=== PATIENT | male | born 1970 | race Caucasian/White ===

== ENCOUNTER 2023-12-05 15:29 | Inpatient (IN) | payer MEDICARE, OTHER ==
[~2023-12-05] VITALS: Ht 185.4 cm; Wt 72.6 kg
[2023-12-05] MEDS ORDERED: CHLORDIAZEPOXIDE HCL 25 MG CAPSULE ONE (16:13)
[2023-12-05] MEDS: CHLORDIAZEPOXIDE HCL 25 MG CAPSULE PO ONE (16:21)
[2023-12-05] MEDS ORDERED: ATOR40TA PO (16:32)
[2023-12-05] MEDS ORDERED: APIX5TAB PO (16:32)
[2023-12-05] MEDS ORDERED: ACET-868 PO (16:32)
[2023-12-05 16:43] LABS: BASOPHILS # (AUTO) 0.1 K/uL (0.0-0.2); BASOPHILS % (AUTO) 0.4 % (0.0-2.0); EOSINOPHILS # (AUTO) 0.1 K/uL (0.0-0.7); EOSINOPHILS % (AUTO) 0.7 % (0.0-6.0); HEMATOCRIT 43 % (39-51); HEMOGLOBIN 14.3 g/dL (13.5-17.5); LYMPHOCYTES # (AUTO) 1.7 K/uL (0.8-4.8); LYMPHOCYTES % (AUTO) 12.1 % (20.0-44.0); MEAN CORPUSCULAR HEMOGLOBIN 33 PG (26.0-33.0); MEAN CORPUSCULAR HGB CONC 34 g/dl (31.0-36.0); MEAN CORPUSCULAR VOLUME 97 fL (80-96); MONOCYTES # (AUTO) 0.9 K/uL (0.1-1.30); MONOCYTES % (AUTO) 6.3 % (2.0-12.0); NEUTROPHILS % (AUTO) 80.5 % (43.0-81.0); PLATELET COUNT (AUTO) 240 K/uL (150-450); RED BLOOD CELL COUNT(AUTO) 4.38 MIL/uL (4.5-6.0); RED CELL DISTRIBUTION WIDTH 14.7 % (11.5-15.0); WHITE BLOOD COUNT (AUTO) 13.6 K/uL (4.3-11.0)
[2023-12-05 16:58] LABS: ALBUMIN 3.8 g/dL (3.4-5.0); BILIRUBIN,DIRECT 0.2 mg/dL (0.0-0.2); BILIRUBIN,TOTAL 0.8 mg/dL (0.2-1.0); CALCIUM, SERUM 9.8 mg/dL (8.5-10.1); CREATININE 0.9 mg/dL (0.6-1.3); POTASSIUM 3.8 mmol/L (3.5-5.1); SALICYLATE 5.6 mg/dL (2.8-20.0); TOTAL PROTEIN, SERUM 7.7 g/dL (6.4-8.2)
[2023-12-05 17:01] LABS: APPEARANCE,URINE CLEAR (CLEAR); BILIRUBIN,URINE NEGATIVE (NEGATIVE); BLOOD, URINE TRACE-INTA Ery/uL (NEGATIVE); COLOR,URINE YELLOW (YELLOW); KETONES,URINE TRACE mg/dL (NEGATIVE); LEUKOCYTE ESTERASE ,URINE NEGATIVE (NEGATIVE); NITRITE, URINE NEGATIVE (NEGATIVE); PH,URINE 6.5 (5.0-8.0); PROTEIN,URINE NEGATIVE (NEGATIVE); UGLUCOSE NEGATIVE (NEGATIVE); UROBILINOGEN,URINE 0.2 EU/dL (0.2)
[2023-12-05 17:15] LABS: AMPHETAMINE, URINE NEGATIVE (NEGATIVE); BARBITURATE, URINE NEGATIVE (NEGATIVE); BENZODIAZEPINE, URINE NEGATIVE (NEGATIVE); CANNABINOID, URINE POSITIVE (NEGATIVE); COCCAINE, URINE NEGATIVE (NEGATIVE); OPIATE, URINE NEGATIVE (NEGATIVE); PHENCYCLIDINE SCREEN,URINE NEGATIVE (NEGATIVE)
[2023-12-05] MEDS ORDERED: MAGNESIUM HYDROXIDE 30 ML UDC PO PRN (18:30)
[2023-12-05] MEDS ORDERED: MAG HYDROX/AL HYDROX/SIMETH 30 ML UDC PO PRN (18:30)
[2023-12-05] MEDS ORDERED: Z GUARD REMEDY 4 OZ OINT TP PRN (18:30)
[2023-12-05] MEDS ORDERED: LORAZEPAM INJ 2 MG/ML VIAL IV PRN (18:30)
[2023-12-05] MEDS ORDERED: ONDANSETRON HCL/PF 4 MG/2 ML VIAL IVP PRN (18:30)
[2023-12-05] MEDS ORDERED: ZOLPIDEM TARTRATE 5 MG TABLET PO PRN (18:30)
[2023-12-05] MEDS ORDERED: LORAZEPAM 0.5 MG TABLET PO PRN (18:30)
[2023-12-05] MEDS ORDERED: DEXTROSE 50%-WATER 50 ML DISP.SYRIN IV PRN (18:30)
[2023-12-05] MEDS ORDERED: ACETAMINOPHEN 325 MG TABLET PO PRN (18:30)
[2023-12-05] MEDS: Thiamine 100 MG in IV D5W 50 ML IV SCH (19:08)
[2023-12-05 20:00] VITALS: BP_SYST 102; BP_SYST 122; BP_DIAS 66; BP_DIAS 86; TEMP 98.4; TEMP 98.5; O2SAT 97; O2SAT 98
[2023-12-05] MEDS: BLOOD SUGAR DIAGNOSTIC 1 EACH STRIP VI SCH (21:37)
[2023-12-06] VITALS: BP 128/73; TEMP 98; O2SAT 96
[2023-12-06 04:00] VITALS: BP 124/81; TEMP 98.3; O2SAT 96
[2023-12-06 06:51] LABS: BASOPHILS % (AUTO) 0.5 % (0.0-2.0); EOSINOPHILS # (AUTO) 0.2 K/uL (0.0-0.7); EOSINOPHILS % (AUTO) 3.1 % (0.0-6.0); HEMATOCRIT 42 % (39-51); HEMOGLOBIN 14.1 g/dL (13.5-17.5); LYMPHOCYTES # (AUTO) 1.7 K/uL (0.8-4.8); LYMPHOCYTES % (AUTO) 23.5 % (20.0-44.0); MEAN CORPUSCULAR HEMOGLOBIN 33 PG (26.0-33.0); MEAN CORPUSCULAR HGB CONC 34 g/dl (31.0-36.0); MEAN CORPUSCULAR VOLUME 98 fL (80-96); MONOCYTES # (AUTO) 0.6 K/uL (0.1-1.30); MONOCYTES % (AUTO) 8.1 % (2.0-12.0); NEUTROPHILS # (AUTO) 4.6 K/uL (1.8-8.9); NEUTROPHILS % (AUTO) 64.8 % (43.0-81.0); PLATELET COUNT (AUTO) 207 K/uL (150-450); RED BLOOD CELL COUNT(AUTO) 4.24 MIL/uL (4.5-6.0); RED CELL DISTRIBUTION WIDTH 14.7 % (11.5-15.0); WHITE BLOOD COUNT (AUTO) 7.1 K/uL (4.3-11.0)
[2023-12-06 07:29] LABS: CALCIUM, SERUM 8.9 mg/dL (8.5-10.1); CREATININE 0.7 mg/dL (0.6-1.3); MAGNESIUM 2.1 mg/dL (1.8-2.4); PHOSPHORUS 4.2 mg/dL (2.5-4.9); POTASSIUM 3.7 mmol/L (3.5-5.1)
[2023-12-06] MEDS: PANTOPRAZOLE 40 MG TABLET.DR PO SCH (07:30)
[2023-12-06 08:00] VITALS: BP 109/74; TEMP 97.3; O2SAT 98
[2023-12-06] MEDS ORDERED: HYDROCODONE/APAP 5/325MG TABLET PO PRN (08:30)
[2023-12-06] MEDS: CHLORDIAZEPOXIDE HCL 25 MG CAPSULE PO SCH (08:53)
[2023-12-06] MEDS: FOLIC ACID 1 MG TABLET PO SCH (08:53)
[2023-12-06] MEDS: INSULIN REGULAR, HUMAN 100 UNIT/ML 3 ML VIAL SQ PRN (08:57)
[2023-12-06] MEDS: THIAMINE HCL 100 MG TABLET PO SCH (09:55)
[2023-12-06 12:00] VITALS: BP 110/80; TEMP 98.4; O2SAT 99
[2023-12-06] MEDS: IBUPROFEN 400 MG TABLET PO PRN (12:58)
[2023-12-06 16:05] VITALS: BP 107/80; TEMP 97.5; O2SAT 95
[2023-12-06 20:00] VITALS: BP 102/66; TEMP 98.5; O2SAT 98
[2023-12-06] MEDS: CHLORDIAZEPOXIDE HCL 25 MG CAPSULE PO ONE (20:56)
[2023-12-06] MEDS: *INSULIN REGULAR(HUMULIN R)HUM 100 UNIT/ML VIAL SQ PRN (22:29)
[2023-12-07] VITALS: BP 98/63; TEMP 98.7; O2SAT 97
[2023-12-07] MEDS ORDERED: LOPERAMIDE HCL (2 MG CAP) 2 MG CAPSULE ONE (02:02)
[2023-12-07] MEDS: LOPERAMIDE HCL (2 MG CAP) 2 MG CAPSULE PO ONE (02:05)
[2023-12-07 04:00] VITALS: BP 100/72; TEMP 97.5; O2SAT 96
[2023-12-07 06:36] LABS: BASOPHILS # (AUTO) 0.1 K/uL (0.0-0.2); BASOPHILS % (AUTO) 0.9 % (0.0-2.0); EOSINOPHILS # (AUTO) 0.2 K/uL (0.0-0.7); EOSINOPHILS % (AUTO) 3.7 % (0.0-6.0); HEMATOCRIT 40 % (39-51); HEMOGLOBIN 13.3 g/dL (13.5-17.5); MEAN CORPUSCULAR HEMOGLOBIN 33 PG (26.0-33.0); MEAN CORPUSCULAR HGB CONC 33 g/dl (31.0-36.0); MEAN CORPUSCULAR VOLUME 98 fL (80-96); MONOCYTES # (AUTO) 0.6 K/uL (0.1-1.30); MONOCYTES % (AUTO) 8.9 % (2.0-12.0); NEUTROPHILS # (AUTO) 3.7 K/uL (1.8-8.9); NEUTROPHILS % (AUTO) 56.5 % (43.0-81.0); PLATELET COUNT (AUTO) 188 K/uL (150-450); RED BLOOD CELL COUNT(AUTO) 4.07 MIL/uL (4.5-6.0); RED CELL DISTRIBUTION WIDTH 14.3 % (11.5-15.0); WHITE BLOOD COUNT (AUTO) 6.5 K/uL (4.3-11.0)
[2023-12-07 07:07] LABS: CALCIUM, SERUM 8.7 mg/dL (8.5-10.1); CREATININE 0.8 mg/dL (0.6-1.3); MAGNESIUM 1.9 mg/dL (1.8-2.4); PHOSPHORUS 4.1 mg/dL (2.5-4.9); POTASSIUM 3.6 mmol/L (3.5-5.1)
[2023-12-07 08:00] VITALS: BP 97/70; TEMP 97.7; O2SAT 96
== END 2023-12-07 10:30 | disposition short-term general hospital (02) | DRG 897 ==
LOC: ER 15:34 → TELE1 17:41
PROVIDERS: ADMIT Student in an Organized Health Care Education/Training Program; ATTEND Student in an Organized Health Care Education/Training Program
DX: F10.139 Alcohol abuse with withdrawal, unspecified (principal); G83.4 Cauda equina syndrome; Z59.00 Homelessness unspecified; E11.40 Type 2 diabetes mellitus with diabetic neuropathy, unspecified; Y90.1 Blood alcohol level of 20-39 mg/100 ml; M48.061 Spinal stenosis, lumbar region without neurogenic claudication; M48.02 Spinal stenosis, cervical region; M51.26 Other intervertebral disc displacement, lumbar region; M50.20 Other cervical disc displacement, unspecified cervical region; I10 Essential (primary) hypertension; G89.29 Other chronic pain; Z88.8 Allergy status to other drugs, medicaments and biological substances; Z79.01 Long term (current) use of anticoagulants; Z79.899 Other long term (current) drug therapy; Z86.718 Personal history of other venous thrombosis and embolism; G62.9 Polyneuropathy, unspecified
CPT/HCPCS: 36415; 72125-TC; 72131-TC; 80048-TC; 80076-TC; 82962-TC; 83735-TC; 84100-TC; 85025-TC; 87081-TC; A4223; G0378; G0480; J1815; J3411; J7050; J7060

== ENCOUNTER 2023-12-09 15:37 | Inpatient (IN) | payer MEDICARE, OTHER ==
[~2023-12-09] VITALS: Ht 188 cm; Wt 72.6 kg
[~2023-12-09 15:37] MED LIST: ACET-868 PO; APIX5TAB PO; ATOR40TA PO
[2023-12-09] MEDS ORDERED: *INS REG3 SQ (16:33)
[2023-12-09] MEDS ORDERED: IBUP-1955 PO (16:33)
[2023-12-09] MEDS ORDERED: FOLI0.4T6 PO (16:33)
[2023-12-09] MEDS ORDERED: HYDR-4303 PO (16:33)
[2023-12-09] MEDS ORDERED: THIA100T74 PO (16:33)
[2023-12-09] MEDS ORDERED: CHLO25CA10 PO (16:33)
[2023-12-09] MEDS ORDERED: MAGN400O6 PO (16:33)
[2023-12-09] MEDS ORDERED: ONDA-97 PO (16:33)
[2023-12-09] MEDS ORDERED: PANT40TA2 PO (16:33)
[2023-12-09] MEDS ORDERED: MAG30ORA PO (16:33)
[2023-12-09] MEDS ORDERED: ZOLP5TAB8 PO (16:33)
[2023-12-09 17:00] VITALS: BP 103/70; TEMP 97.7; O2SAT 93
[2023-12-09 20:00] VITALS: BP 105/78; TEMP 97.5; O2SAT 97
[2023-12-09] MEDS ORDERED: ZOLPIDEM TARTRATE 5 MG TABLET PO PRN (21:30)
[2023-12-09] MEDS ORDERED: IBUPROFEN 400 MG TABLET PO PRN (21:30)
[2023-12-09] MEDS ORDERED: MAG HYDROX/AL HYDROX/SIMETH 30 ML UDC PO PRN (21:30)
[2023-12-09] MEDS ORDERED: ONDANSETRON 4 MG TAB.RAPDIS SL PRN (21:30)
[2023-12-09] MEDS ORDERED: Z GUARD REMEDY 4 OZ OINT TP PRN (21:30)
[2023-12-09] MEDS ORDERED: ACETAMINOPHEN 325 MG TABLET PO PRN (21:30)
[2023-12-09] MEDS ORDERED: HYDROCODONE/APAP 5/325MG TABLET PO PRN (21:30)
[2023-12-09] MEDS ORDERED: MAGNESIUM HYDROXIDE 30 ML UDC PO PRN (21:30)
[2023-12-09] MEDS ORDERED: CHLORDIAZEPOXIDE HCL 25 MG CAPSULE PO PRN (21:30)
[2023-12-09] MEDS ORDERED: CYCLOBENZAPRINE 10 MG TABLET PO PRN (23:30)
[2023-12-10 04:00] VITALS: BP 103/67; TEMP 98.1; O2SAT 98
[2023-12-10] MEDS: PANTOPRAZOLE 40 MG TABLET.DR PO SCH (06:37)
[2023-12-10 08:00] VITALS: BP 120/87; TEMP 97.7; O2SAT 99
[2023-12-10] MEDS: FOLIC ACID 1 MG TABLET PO SCH (08:28)
[2023-12-10] MEDS: THIAMINE HCL 100 MG TABLET PO SCH (08:28)
[2023-12-10 16:00] VITALS: BP 114/77; TEMP 97.5; O2SAT 100
[2023-12-10 18:00] VITALS: BP 114/77; TEMP 97.5; O2SAT 100
[2023-12-11] VITALS: BP 112/89; TEMP 98.4; O2SAT 100
[2023-12-11 07:06] LABS: BASOPHILS % (AUTO) 0.8 % (0.0-2.0); EOSINOPHILS # (AUTO) 0.2 K/uL (0.0-0.7); EOSINOPHILS % (AUTO) 4.2 % (0.0-6.0); HEMATOCRIT 42 % (39-51); HEMOGLOBIN 13.9 g/dL (13.5-17.5); LYMPHOCYTES # (AUTO) 1.8 K/uL (0.8-4.8); LYMPHOCYTES % (AUTO) 32.1 % (20.0-44.0); MEAN CORPUSCULAR HEMOGLOBIN 33 PG (26.0-33.0); MEAN CORPUSCULAR HGB CONC 33 g/dl (31.0-36.0); MEAN CORPUSCULAR VOLUME 99 fL (80-96); MONOCYTES # (AUTO) 0.6 K/uL (0.1-1.30); MONOCYTES % (AUTO) 10.3 % (2.0-12.0); NEUTROPHILS % (AUTO) 52.6 % (43.0-81.0); PLATELET COUNT (AUTO) 204 K/uL (150-450); RED BLOOD CELL COUNT(AUTO) 4.25 MIL/uL (4.5-6.0); RED CELL DISTRIBUTION WIDTH 14.1 % (11.5-15.0); WHITE BLOOD COUNT (AUTO) 5.6 K/uL (4.3-11.0)
[2023-12-11 07:34] LABS: CALCIUM, SERUM 9.7 mg/dL (8.5-10.1); CREATININE 1.1 mg/dL (0.6-1.3)
[2023-12-11 08:00] VITALS: BP 107/74; TEMP 97.7; O2SAT 98
[2023-12-11 16:00] VITALS: BP 127/80; TEMP 97.1; O2SAT 96
[2023-12-12] MEDS ORDERED: CRAN425C6 PO (14:19)
[2023-12-12] MEDS ORDERED: BISA10SU11 RC (14:19)
[2023-12-12] MEDS ORDERED: DOCU100C36 PO (14:19)
== END 2023-12-11 19:31 | DRG 552 ==
LOC: TELE1 16:17 → MEDSG1 12-10 05:00
DX: M48.061 Spinal stenosis, lumbar region without neurogenic claudication (principal); G83.4 Cauda equina syndrome; M48.02 Spinal stenosis, cervical region; M54.30 Sciatica, unspecified side; E11.40 Type 2 diabetes mellitus with diabetic neuropathy, unspecified; I10 Essential (primary) hypertension; Z98.1 Arthrodesis status; Z86.718 Personal history of other venous thrombosis and embolism; Z71.6 Tobacco abuse counseling; M25.78 Osteophyte, vertebrae; F10.10 Alcohol abuse, uncomplicated; Y90.9 Presence of alcohol in blood, level not specified; F17.210 Nicotine dependence, cigarettes, uncomplicated; Z79.4 Long term (current) use of insulin; Z79.899 Other long term (current) drug therapy
CPT/HCPCS: 36415; 80048-TC; 85025-TC; 97112-TC; 97116-TC; 97530-TC; G0378

== ENCOUNTER 2023-12-12 11:03 | Inpatient (IN) | payer MEDICARE, OTHER ==
[~2023-12-12] VITALS: Ht 188 cm; Wt 74.8 kg
[~2023-12-12 11:03] MED LIST changes: +*INS REG3 SQ; -APIX5TAB PO; -ATOR40TA PO; +FOLI0.4T6 PO; +IBUP-1955 PO; +MAG30ORA PO; +MAGN400O6 PO; +ONDA-97 PO; +PANT40TA2 PO; +THIA100T74 PO
[2023-12-12 11:40] VITALS: O2SAT 93
[2023-12-12 12:03] LABS: BASOPHILS % (AUTO) 0.5 % (0.0-2.0); EOSINOPHILS # (AUTO) 0.1 K/uL (0.0-0.7); EOSINOPHILS % (AUTO) 2.4 % (0.0-6.0); HEMATOCRIT 43 % (39-51); LYMPHOCYTES # (AUTO) 2.1 K/uL (0.8-4.8); LYMPHOCYTES % (AUTO) 35.2 % (20.0-44.0); MEAN CORPUSCULAR HEMOGLOBIN 32 PG (26.0-33.0); MEAN CORPUSCULAR HGB CONC 33 g/dl (31.0-36.0); MEAN CORPUSCULAR VOLUME 97 fL (80-96); MONOCYTES # (AUTO) 0.6 K/uL (0.1-1.30); MONOCYTES % (AUTO) 9.6 % (2.0-12.0); NEUTROPHILS # (AUTO) 3.2 K/uL (1.8-8.9); NEUTROPHILS % (AUTO) 52.3 % (43.0-81.0); PLATELET COUNT (AUTO) 228 K/uL (150-450); RED CELL DISTRIBUTION WIDTH 14.5 % (11.5-15.0); WHITE BLOOD COUNT (AUTO) 6.1 K/uL (4.3-11.0)
[2023-12-12 12:11] LABS: SERUM AMMONIA 18 umol/L (11-32)
[2023-12-12 12:20] LABS: ALANINE AMINOTRANSFERASE 48 U/L (12-78); ALBUMIN 4.1 g/dL (3.4-5.0); ALCOHOL, BLOOD 207 mg/dL (0-10); ALKALINE PHOSPHATASE 76 U/L (46-116); ASPARTATE AMINOTRANSFERASE 25 U/L (15-37); BILIRUBIN,TOTAL 0.2 mg/dL (0.2-1.0); CALCIUM, SERUM 9.4 mg/dL (8.5-10.1); CARBON DIOXIDE 29 mmol/L (21-32); CHLORIDE 106 mmol/L (98-107); CREATININE 1.1 mg/dL (0.6-1.3); GLUCOSE 101 mg/dL (74-106); POTASSIUM 3.8 mmol/L (3.5-5.1); SODIUM SERUM 143 mmol/L (136-145); TOTAL PROTEIN, SERUM 7.7 g/dL (6.4-8.2); UREA NITROGEN, BLOOD 15 mg/dL (7-18)
[2023-12-12 12:34] LABS: BILIRUBIN,DIRECT 0.1 mg/dL (0.0-0.2)
[2023-12-12] MEDS ORDERED: BISA10SU11 RC (14:19)
[2023-12-12] MEDS ORDERED: CRAN425C6 PO (14:19)
[2023-12-12] MEDS ORDERED: DOCU100C36 PO (14:19)
[2023-12-12 14:44] LABS: SALICYLATE 5.9 mg/dL (2.8-20.0)
[2023-12-12] MEDS ORDERED: MAG HYDROX/AL HYDROX/SIMETH 30 ML UDC PO PRN ×2 (16:00→18:30)
[2023-12-12] MEDS ORDERED: BISACODYL SUPP (10 MG) 10 MG/SUPP.RECT SUPP.RECT RC PRN (16:00)
[2023-12-12] MEDS ORDERED: MAGNESIUM HYDROXIDE 30 ML UDC PO PRN ×2 (16:00→18:30)
[2023-12-12] MEDS ORDERED: ACETAMINOPHEN 325 MG TABLET PO PRN ×2 (16:00→18:30)
[2023-12-12] MEDS ORDERED: ONDANSETRON 4 MG TAB.RAPDIS PO PRN (16:30)
[2023-12-12] MEDS: *INSULIN REGULAR(HUMULIN R)HUM 100 UNIT/ML VIAL SQ SCH (17:30)
[2023-12-12 18:08] LABS: APPEARANCE,URINE CLEAR (CLEAR); BILIRUBIN,URINE NEGATIVE (NEGATIVE); BLOOD, URINE NEGATIVE Ery/uL (NEGATIVE); COLOR,URINE YELLOW (YELLOW); KETONES,URINE NEGATIVE (NEGATIVE); LEUKOCYTE ESTERASE ,URINE NEGATIVE (NEGATIVE); NITRITE, URINE NEGATIVE (NEGATIVE); PROTEIN,URINE NEGATIVE (NEGATIVE); UGLUCOSE NEGATIVE (NEGATIVE); UROBILINOGEN,URINE 0.2 EU/dL (0.2)
[2023-12-12] MEDS: CHLORDIAZEPOXIDE HCL 25 MG CAPSULE PO PRN (18:08)
[2023-12-12 18:15] LABS: AMPHETAMINE, URINE NEGATIVE (NEGATIVE); BARBITURATE, URINE NEGATIVE (NEGATIVE); CANNABINOID, URINE NEGATIVE (NEGATIVE); COCCAINE, URINE NEGATIVE (NEGATIVE); OPIATE, URINE NEGATIVE (NEGATIVE); PHENCYCLIDINE SCREEN,URINE NEGATIVE (NEGATIVE)
[2023-12-12 18:16] LABS: BENZODIAZEPINE, URINE POSITIVE (NEGATIVE)
[2023-12-12] MEDS ORDERED: TEMAZEPAM 7.5 MG CAPSULE PO PRN (18:30)
[2023-12-12] MEDS: BLOOD SUGAR DIAGNOSTIC 1 EACH STRIP IN ONE (19:25)
[2023-12-12 20:00] VITALS: BP 101/57; TEMP 98.1; O2SAT 96
[2023-12-13] MEDS: PANTOPRAZOLE 40 MG TABLET.DR PO SCH (07:30)
[2023-12-13 08:00] VITALS: BP 137/90; TEMP 97.6; O2SAT 99
[2023-12-13] MEDS: DOCUSATE SODIUM 100 MG CAPSULE PO SCH (09:00)
[2023-12-13] MEDS: THIAMINE HCL 100 MG TABLET PO SCH (09:32)
[2023-12-13] MEDS: FOLIC ACID 1 MG TABLET PO SCH (09:32)
[2023-12-13] MEDS: risperiDONE 1 MG TABLET PO SCH (12:47)
[2023-12-13 16:00] VITALS: BP 110/71; TEMP 97.9; O2SAT 97
[2023-12-13] MEDS ORDERED: INSULIN REGULAR, HUMAN 100 UNIT/ML 3 ML VIAL SQ PRN (17:00)
[2023-12-13] MEDS ORDERED: DEXTROSE 50%-WATER 50 ML DISP.SYRIN IV PRN (17:00)
[2023-12-13] MEDS: BLOOD SUGAR DIAGNOSTIC 1 EACH STRIP IN SCH (17:30)
[2023-12-13] MEDS ORDERED: Z GUARD REMEDY 4 OZ OINT TP PRN (18:00)
[2023-12-14 08:00] VITALS: BP 112/65; TEMP 97.9; O2SAT 98
[2023-12-14] MEDS: Z GUARD REMEDY 4 OZ OINT TP SCH (09:03)
[2023-12-14 14:31] LABS: CREATININE 1.1 mg/dL (0.6-1.3)
[2023-12-14 14:36] LABS: CHOLESTEROL 288 mg/dL (<200); HDL CHOLESTEROL 62 mg/dL (40-60); LDL 163 mg/dL (0-99); TRIGLYCERIDES 356 mg/dL (30-150)
[2023-12-14 14:39] LABS: ALBUMIN 3.7 g/dL (3.4-5.0); BILIRUBIN,TOTAL 0.3 mg/dL (0.2-1.0); CALCIUM, SERUM 9.7 mg/dL (8.5-10.1); CREATININE 1.1 mg/dL (0.6-1.3); POTASSIUM 3.9 mmol/L (3.5-5.1); TOTAL PROTEIN, SERUM 7.7 g/dL (6.4-8.2)
[2023-12-14 16:00] VITALS: BP_SYST 100; BP_SYST 135; BP_DIAS 56; BP_DIAS 83; TEMP 97.7; TEMP 98; O2SAT 94; O2SAT 98
[2023-12-14] MEDS: IBUPROFEN 600 MG TABLET PO PRN (17:33)
[2023-12-14 22:59] VITALS: BP 122/57; TEMP 98.4; O2SAT 96
[2023-12-15 08:00] VITALS: BP 91/54; TEMP 98; O2SAT 100
== END 2023-12-15 12:35 | disposition left against medical advice (07) | DRG 885 ==
LOC: ER 11:05 → GPS 15:33
PROVIDERS: ADMIT Psychiatry & Neurology Psychosomatic Medicine
DX: F39 Unspecified mood [affective] disorder (principal); F10.229 Alcohol dependence with intoxication, unspecified; G83.4 Cauda equina syndrome; F29 Unspecified psychosis not due to a substance or known physiological condition; Y90.7 Blood alcohol level of 200-239 mg/100 ml; M48.061 Spinal stenosis, lumbar region without neurogenic claudication; Z20.822 Contact with and (suspected) exposure to COVID-19; I10 Essential (primary) hypertension; Z86.718 Personal history of other venous thrombosis and embolism; Z98.890 Other specified postprocedural states; Z88.8 Allergy status to other drugs, medicaments and biological substances; Z79.4 Long term (current) use of insulin; Z79.899 Other long term (current) drug therapy; Z98.1 Arthrodesis status; M48.02 Spinal stenosis, cervical region; M54.30 Sciatica, unspecified side; E11.40 Type 2 diabetes mellitus with diabetic neuropathy, unspecified; F17.210 Nicotine dependence, cigarettes, uncomplicated; F43.10 Post-traumatic stress disorder, unspecified; Z91.148 Patient's other noncompliance with medication regimen for other reason; Z73.6 Limitation of activities due to disability
CPT/HCPCS: 36415; 70450-TC; 71045-TC; 80048-TC; 80053-TC; 80061-TC; 80076-TC; 82140-TC; 82565-TC; 82962-TC; 84484-TC; 85025-TC; 87081-TC; 87086-TC; G0480; J1815